=== PATIENT | female | born 1995 | race Caucasian/White ===

== ENCOUNTER 2022-05-23 22:28 | Emergency (ER) | payer OTHER ==
[2022-05-23 22:48] VITALS: TEMP 98.1
[2022-05-23] MEDS ORDERED: SODIUM CHLORIDE 0.9% 500 ML 500 ML IV STA (23:15)
[2022-05-24 00:03] VITALS: RESP 18
--- NOTE | 2022-05-24 00:53 | ED ---
Psych HPI - General Chief Complaint: Psychiatric Symptoms Stated Complaint: LT arm lac Time Seen by Provider: 05/23/22 22:41 Source: EMS Mode of arrival: EMS - History of Present Illness Initial Comments: This patient is 26-year-old woman who presents here to have evaluation for feeling depressed. The patient states that she does have long-standing history of depression. She states sometimes flares if she drinks alcohol. The patient states that she had some drinks tonight with a friend, and then started feeling more depressed. This resulted in her taking a few Adderall that someone had supplied her. She states she also used a razor to scrape her left arm. MD Complaint: suicidal ideation, feels depressed -: hour(s) Associated Psychiatric Symptoms: depression, suicidal ideation History of same: Yes Quality: getting worse Improves With: none Worsens With: alcohol - Related Data Allergies Allergy/AdvReac Type Severity Reaction Status Date / Time No Known Allergies Allergy Verified 05/23/22 22:36 Review of Systems ROS Statement: Those systems with pertinent positive or pertinent negative responses have been documented in the HPI. ROS Other: All systems not noted in ROS Statement are negative. Constitutional: Denies: fever, chills Respiratory: Denies: cough, dyspnea Cardiovascular: Denies: chest pain, palpitations Gastrointestinal: Denies: abdominal pain, vomiting, diarrhea Genitourinary: Denies: dysuria, hematuria Musculoskeletal: Denies: back pain Skin: Denies: rash Neurological: Denies: headache, weakness Psychiatric: Reports: depression, suicidal thoughts General Exam Limitations: no limitations General appearance: alert, in no apparent distress Head exam: Present: atraumatic, normocephalic Eye exam: Present: normal appearance, PERRL, EOMI. Absent: scleral icterus, conjunctival injection Neck exam: Present: normal inspection Respiratory exam: Present: normal lung sounds bilaterally. Absent: respiratory distress, wheezes, rales, rhonchi, stridor Cardiovascular Exam: Present: regular rate, normal rhythm, normal heart sounds. Absent: systolic murmur, diastolic murmur, rubs, gallop GI/Abdominal exam: Present: soft. Absent: distended, tenderness, guarding, rebound, rigid, mass Extremities exam: Present: normal inspection, normal capillary refill. Absent: pedal edema, calf tenderness Back exam: Present: normal inspection. Absent: CVA tenderness (R), CVA tenderness (L) Neurological exam: Present: alert Psychiatric exam: Present: depressed, suicidal ideation. Absent: agitated, flat affect, manic, homicidal ideation Skin exam: Present: warm, dry, normal color, abrasion (Left forearm). Absent: rash Course Vital Signs 05/23/22 05/24/22 22:36 00:02 Temperature 98.1 F Pulse Rate 115 H 74 Respiratory 15 18 Rate Blood Pressure 156/105 134/68 O2 Sat by Pulse 100 98 Oximetry Medical Decision Making - Lab Data Result diagrams: 05/23/22 00:45 05/23/22 00:45 Lab Results 05/23/22 05/23/22 05/23/22 Range/Units 00:45 00:45 00:45 WBC 4.4 (3.8-10.6) k/uL RBC 4.67 (3.80-5.40) m/uL Hgb 11.9 (11.4-16.0) gm/dL Hct 36.7 (34.0-46.0) % MCV 78.6 L (80.0-100.0) fL MCH 25.6 (25.0-35.0) pg MCHC 32.5 (31.0-37.0) g/dL RDW 13.2 (11.5-15.5) % Plt Count 309 (150-450) k/uL MPV 6.9 Neutrophils % 53 % Lymphocytes % 35 % Monocytes % 7 % Eosinophils % 1 % Basophils % 1 % Neutrophils # 2.3 (1.3-7.7) k/uL Lymphocytes # 1.5 (1.0-4.8) k/uL Monocytes # 0.3 (0-1.0) k/uL Eosinophils # 0.1 (0-0.7) k/uL Basophils # 0.0 (0-0.2) k/uL Hypochromasia Slight Sodium 141 (137-145) mmol/L Potassium 3.9 (3.5-5.1) mmol/L Chloride 109 H (98-107) mmol/L Carbon Dioxide 27 (22-30) mmol/L Anion Gap 5 mmol/L BUN 13 (7-17) mg/dL Creatinine 0.74 (0.52-1.04) mg/dL Est GFR (CKD-EPI)AfAm >90 (>60 ml/min/1.73 sqM) Est GFR (CKD-EPI)NonAf >90 (>60 ml/min/1.73 sqM) Glucose 105 H (74-99) mg/dL Plasma Lactic Acid Robbie 0.8 (0.7-2.0) mmol/L Calcium 9.0 (8.4-10.2) mg/dL Total Bilirubin 0.4 (0.2-1.3) mg/dL AST 27 (14-36) U/L ALT 23 (4-34) U/L Alkaline Phosphatase 65 (38-126) U/L Total Protein 7.2 (6.3-8.2) g/dL Albumin 4.6 (3.5-5.0) g/dL Salicylates <1.0 mg/dL Acetaminophen <10.0 ug/mL - EKG Data -: EKG Interpreted by [facility] EKG shows normal: sinus rhythm, axis (normal), intervals (normal), QRS complexes (normal), ST-T waves (normal) Rate: normal (73.) Interpretation: normal EKG Disposition Clinical Impression: Mood disorder Disposition: HOME SELF-CARE Condition: Good Instructions (If sedation given, give patient instructions): Mood Disorders (ED) Is patient prescribed a controlled substance at d/c from ED?: No Referrals: None,Stated [Primary Care Provider] - 1-2 days
[2022-05-24 01:01] LABS: Basophils % (A) 1 %; Eosinophils # (A) 0.1 k/uL (0-0.7); Eosinophils % (A) 1 %; HCT 36.7 % (34.0-46.0); HGB 11.9 gm/dL (11.4-16.0); Hypochromasia Slight; Lymphocytes # (A) 1.5 k/uL (1.0-4.8); Lymphocytes % (A) 35 %; MCH 25.6 pg (25.0-35.0); MCHC 32.5 g/dL (31.0-37.0); MCV 78.6 fL (80.0-100.0); Mean Platelet Volume 6.9; Monocytes # (A) 0.3 k/uL (0-1.0); Monocytes % (A) 7 %; Neutrophils # (A) 2.3 k/uL (1.3-7.7); Neutrophils % (A) 53 %; Platelet Count 309 k/uL (150-450); RBC 4.67 m/uL (3.80-5.40); RDW 13.2 % (11.5-15.5); WBC 4.4 k/uL (3.8-10.6)
[2022-05-24 01:11] LABS: ALT 23 U/L (4-34); AST 27 U/L (14-36); Acetaminophen <10.0 ug/mL; African American GFR (CKD) >90 (>60 ml/min/1.73 sqM); Albumin 4.6 g/dL (3.5-5.0); Alkaline Phosphatase 65 U/L (38-126); Anion Gap 5 mmol/L; Blood Urea Nitrogen 13 mg/dL (7-17); Carbon Dioxide 27 mmol/L (22-30); Chloride 109 mmol/L (98-107); Glucose 105 mg/dL (74-99); Non-African American GFR(CKD) >90 (>60 ml/min/1.73 sqM); Potassium 3.9 mmol/L (3.5-5.1); Salicylate <1.0 mg/dL; Sodium 141 mmol/L (137-145); Total Bilirubin 0.4 mg/dL (0.2-1.3); Total Protein 7.2 g/dL (6.3-8.2)
[2022-05-24 02:59] VITALS: BP 128/68; PULSE 70
== END 2022-05-24 02:59 | disposition home or self-care (01) ==
LOC: EC 22:28
DX: F39 Unspecified mood [affective] disorder (principal)
CPT/HCPCS: 36415; 80053; 80143; 80179; 82075; 83605; 85025; 93005; 99285